=== PATIENT | male | born 1945 | race Caucasian/White ===

== ENCOUNTER 2018-02-04 11:44 | Emergency (ER) | payer MEDICARE, OTHER ==
[~2018-02-04] VITALS: Ht 165.1 cm; Wt 79.8 kg
[2018-02-04] MEDS ORDERED: GLIPIZIDE (11:56)
[2018-02-04] MEDS ORDERED: INSULIN (11:56)
[2018-02-04] MEDS ORDERED: TRADJENTA (11:56)
[2018-02-04] MEDS ORDERED: IV NORMAL SALINE 1000 ML BAG IV ONE (12:00)
[2018-02-04 12:20] LABS: BASOPHILS % (AUTO) 0.7 % (0.0-2.0); EOSINOPHILS # (AUTO) 0.1 K/uL (0.0-0.7); EOSINOPHILS % (AUTO) 2.3 % (0.0-7.0); HEMATOCRIT 39.1 % (36.7-47.1); LYMPHOCYTES # (AUTO) 1.8 K/uL (20.0-40.0); LYMPHOCYTES % (AUTO) 33.1 % (20.5-51.5); MEAN CORPUSCULAR HEMOGLOBIN 34.9 uug (23.8-33.4); MEAN CORPUSCULAR HGB CONC 36 g/dL (32.5-36.3); MEAN CORPUSCULAR VOLUME 97.4 fL (73.0-96.2); MONOCYTES # (AUTO) 0.6 K/uL (2.0-10.0); NEUTROPHILS # (AUTO) 2.9 K/uL (1.8-8.9); NEUTROPHILS % (AUTO) 52.9 % (38.5-71.5); PLATELET COUNT (AUTO) 149 K/uL (152-348); RED BLOOD CELL COUNT(AUTO) 4.02 MIL/uL (4.06-5.63); WHITE BLOOD COUNT (AUTO) 5.5 K/uL (3.6-10.2)
[2018-02-04 12:21] LABS: CREATININE 2.1 mg/dL (0.6-1.3); POTASSIUM 3.7 mmol/L (3.5-5.1)
[2018-02-04 12:33] LABS: BILIRUBIN,DIRECT 0.2 mg/dL (0.0-0.2); BILIRUBIN,TOTAL 0.7 mg/dL (0.2-1.0); TOTAL PROTEIN, SERUM 6.9 g/dL (6.4-8.2)
[2018-02-04] MEDS ORDERED: LABETALOL HCL 100 MG/20 ML VIAL ONE (12:40)
[2018-02-04] MEDS ORDERED: LABETALOL HCL 100 MG/20 ML VIAL IV ONE ×3 (12:45→13:45)
[2018-02-04] MEDS ORDERED: OLME40TA12 PO (12:57)
[2018-02-04] MEDS ORDERED: CARVEDILOL (12:57)
--- NOTE | 2018-02-04 13:43 | NUR ---
Patient discharged to home in stable conditon. Written and verbal after care instructions given. Patient verbalizes understanding of instructions.pt says feels better. pt denies being nauseated, dizzy or having cp at this time.pt with , pt not driving.
[2018-02-04 13:51] VITALS: BP 178/94
== END 2018-02-04 13:51 | disposition home or self-care (01) ==
LOC: ER 11:44
DX: R07.89 Other chest pain (principal); I10 Essential (primary) hypertension; R42 Dizziness and giddiness; E11.9 Type 2 diabetes mellitus without complications; Z79.4 Long term (current) use of insulin; Z79.899 Other long term (current) drug therapy
CPT/HCPCS: 36415; 70450; 71045; 80048; 80076; 82962; 83880; 84484; 85025; 85730; 93005; 96361; 96374; 96376; 99284; J3490; 70030-TC; A4663; J7030